=== PATIENT | male | born 1940 | race Caucasian/White ===

== ENCOUNTER 2019-01-24 09:13 | Day surgery (SDC) | payer OTHER ==
[~2019-01-24] VITALS: Ht 190.5 cm; Wt 104.3 kg
[~2019-01-24 09:13] MED LIST: APIX5TAB PO; ASPI-231 PO; ATOR40TA52 PO; CARV12.544 PO; DIGO0.1262 PO; FOLI1TAB6 PO; FURO40TA4 PO; LISI2.5T47 PO; METH2.5T3 PO; OMEP20TA PO; SPIR25TA8 PO
[2019-01-24] MEDS ORDERED: ACETAMINOPHEN 500 MG TAB PO ONE (10:30)
[2019-01-24] MEDS ORDERED: IODIXANOL 320MG/ML 100ML BTL IV ONE ×2 (10:34→11:16)
[2019-01-24] MEDS ORDERED: LIDOCAINE 2%HCL (LOCAL ANESTH.) INJ 20ML MDV ONE (10:34)
[2019-01-24] MEDS ORDERED: ANGIOMAX 250 MG VIAL IV ONE (11:15)
[2019-01-24] MEDS ORDERED: HEPARIN SODIUM (PORCINE) 5000 UNITS/ML 1ML VIAL ONE (11:15)
[2019-01-24] MEDS ORDERED: fentaNYL CITRATE 100 MCG/2 ML VL ONE (11:16)
[2019-01-24] MEDS ORDERED: MIDAZOLAM HCL 1MG/1ML-2 ML VIAL ONE (11:16)
[2019-01-24] MEDS ORDERED: SODIUM CHL 0.9% 0 ML ONE (11:16)
[2019-01-24] MEDS ORDERED: VERAPAMIL 2.5MG/ML INJ 2ML VIAL IV ONE (11:16)
[2019-01-24] MEDS ORDERED: NITROGLYCERIN 5MG/ML 10ML VIAL IV ONE (12:12)
== END 2019-01-24 14:30 | disposition home or self-care (01) ==
LOC: CATH 09:13
PROVIDERS: ATTEND Internal Medicine Cardiovascular Disease
DX: R06.02 Shortness of breath (principal); R07.9 Chest pain, unspecified; I10 Essential (primary) hypertension; I48.2 Chronic atrial fibrillation; I25.10 Atherosclerotic heart disease of native coronary artery without angina pectoris; E78.5 Hyperlipidemia, unspecified; J45.909 Unspecified asthma, uncomplicated; Z79.02 Long term (current) use of antithrombotics/antiplatelets; Z79.899 Other long term (current) drug therapy; Z79.01 Long term (current) use of anticoagulants; Z79.82 Long term (current) use of aspirin
CPT/HCPCS: 93458; C1760; C1894; J1644; J2250; J3010; J3490; Q9967; 99152; 99153